=== PATIENT | male | born 1990 | race Caucasian/White ===

== ENCOUNTER 2017-05-02 19:32 | Emergency (ER) | payer MEDICARE, MEDICAID ==
[2017-05-02] MEDS ORDERED: KETOROLAC 30 MG/ML VIAL IVP ONE (19:35)
[2017-05-02] MEDS ORDERED: ONDANSETRON HCL IV 4 MG/2 ML VIAL IVP ONE (19:36)
[2017-05-02] MEDS ORDERED: 0.9 % SODIUM CHLORIDE 1000ML 1,000 ML IV SCH (19:45)
--- NOTE | 2017-05-02 19:45 | Emergency Department Record ---
History of Present Illness - General Chief complaint: Flank Pain Stated complaint: SHARP PAIN IN LT SIDE Time Seen by Provider: 05/02/17 19:34 Source: Patient Mode of Arrival: Ambulatory Limitations: No limitations - History of Present Illness Initial comments: 27 yo male presents to ED for evaluation of RLQ pain and right sided flank pain symptoms that began 2.5 days ago. Patient reports that he went to the ED in [place] at that time, underwent evaluation and CT imaging, told his symptoms were likely due to a small kidney stone. Patient denies fevers, chills, or vomiting, denies change in stools. Patient reports that the symptoms began while moving, denies previous abdominal surgery. MD Complaint: Other Onset/Timin -: Days(s) Location: Left flank Severity: Severe Quality: Aching Consistency: Constant Improves with: None Worsens with: None Reports: Denies other symptoms - Related Data Sexually active: Yes Home Medications Medication Instructions Recorded Confirmed Last Taken Hydrocodone/Acetaminophen [Berne 1 each PO Q6H 05/02/17 05/02/17 Unknown 5-325 Tablet] Tamsulosin HCl [Flomax] 0.4 mg PO DAILY 05/02/17 05/02/17 Unknown Allergies Allergy/AdvReac Type Severity Reaction Status Date / Time No Known Drug Allergies Allergy Verified 05/02/17 19:40 Review of Systems Constitutional: Denies: Chills, Fever, Malaise, Night sweats Eyes: Denies: Eye discharge, Eye pain ENT: Denies: Congestion, Ear pain, Epistaxis Respiratory: Denies: Cough, Dyspnea Cardiovascular: Denies: Chest pain, Dyspnea on exertion Endocrine: Denies: Fatigue, Heat or cold intolerance Gastrointestinal: Reports: Abdominal pain. Denies: Constipation, Nausea, Vomiting Genitourinary: Reports: Retention. Denies: Incontinence Musculoskeletal: Reports: Back pain. Denies: Arthralgia, Gout, Joint swelling Skin: Denies: Bruising, Change in color Neurological: Denies: Abnormal gait, Confusion, Headache, Seizure Psychiatric: Denies: Anxiety Hematological/Lymphatic: Denies: Anemia, Blood Clots Physical Exam - General General Appearance: Alert, Oriented x3, Cooperative, Moderate distress Limitations: No limitations - Head Head exam: Atraumatic, Normocephalic, Normal inspection Head exam detail: negative: Abrasion, Contusion, Llamas's sign, General tenderness, Hematoma, Laceration - Eye Eye exam: Normal appearance. negative: Conjunctival injection, Periorbital swelling, Periorbital tenderness, Scleral icterus - ENT Ear exam: negative: Auricular hematoma, Auricular trauma Nasal Exam: negative: Active bleeding, Discharge, Dried blood, Foreign body Mouth exam: negative: Drooling, Laceration, Muffled voice, Tongue elevation - Neck Neck exam: Normal inspection. negative: Meningismus, Tenderness - Respiratory Respiratory exam: Normal lung sounds bilaterally. negative: Rales, Respiratory distress, Rhonchi, Stridor - Cardiovascular Cardiovascular Exam: Regular rate, Normal rhythm, Normal heart sounds - GI/Abdominal GI/Abdominal exam: Soft, Tenderness, Other (TTP LUQ/LLQ on examination with guarding present). negative: Rebound, Rigid - Rectal Rectal exam: Deferred - exam: Circumcision, Normal inspection. negative: Scrotal swelling, Testicular tenderness - Extremities Extremities exam: Normal inspection. negative: Calf tenderness, Pedal edema, Tenderness - Back Back exam: Reports: CVA tenderness (L). Denies: CVA tenderness (R) - Neurological Neurological exam: Alert, Normal gait, Oriented X3 - Psychiatric Psychiatric exam: Anxious - Skin Skin exam: Normal color. negative: Abrasion Type of lesion: negative: abrasion Course - Reevaluation(s) Reevaluation #1: 05/02/17 20:33 Labs reviewed, WBC 12.8 (down from 19.4 05/01/17 at [facility]), labs are otherwise grossly unremarkable for an acute process. UA: RBC TNTC WBC 0-2 Bacteria: Rare Reevaluation #2: 05/02/17 20:35 CT Abdomen and Pelvis: 2-3 mm calculus left UVJ with mild associated hydronephrosis Patient's previous imaging was reviewed and is overall unchanged from 05/01/17 Patient was updated on all results, pain symptoms are improved. Patient has Berne 10mg, Flomax, and Ibuprofen 600 mg prescribed from his previous visit. Will refer to Dr. Landin for further evaluation as well. Medical Decision Making - Lab Data Result diagrams: 05/02/17 19:45 05/02/17 19:45 Disposition Disposition: Discharge Clinical Impression: Kidney stone on left side Disposition: Home, Self-Care Condition: (2) Stable Instructions: Kidney Stones (ED) Additional Instructions: Return to ED if your symptoms worsen or if you have any concerns. Continue Berne, Flomax, and Ibuprofen as previously prescribed. Follow-up with Dr. Landin in 1-3 days as directed, call for appointment. Referrals: ANTONI LANDIN M.D. [MEDICAL DOCTOR] - [facility] [Provider Group] Forms: Patient Portal Access Time of Disposition: 20:40 Quality - Quality Measures Quality Measures: N/A - Blood Pressure Screening Does Patient Have Any of the Following: No Blood Pressure Classification: Hypertensive Reading Systolic Measurement: 151 Diastolic Measurement: 98 Screening for High Blood Pressure: < First Hypertensive BP, F/U Documented > [ [id number]] First Hypertensive Follow-up Interventions: Referral to alternative/primary care provider.
[2017-05-02 19:58] LABS: BASO % 0.2 % (0-6); EOS % 1.7 % (0-6); GRAN % 68.2 % (47-80); HEMATOCRIT 34.8 % (42.0-52.0); HEMOGLOBIN 11.9 gm/dl (14.0-18.0); LYMPH % 20.9 % (16-45); MEAN CELL VOLUME 90.6 fl (81-97); MEAN CORPUSCULAR HGB CONC 34.2 g/dl (32-36); MEAN PLATELET VOLUME 9.7 fl (7.4-10.4); PLATELET COUNT 276 K/uL (130-400); RED BLOOD COUNT 3.84 M/uL (4.40-5.70); RED CELL DISTRIBUTION WIDTH 11.3 % (11.5-14.5); WHITE BLOOD COUNT W/O DIFF 12.8 K/uL (4.2-12.2)
[2017-05-02 19:59] LABS: MEAN CORPUSCULAR HEMOGLOBIN 30.9 pg (27-33)
[2017-05-02] MEDS ORDERED: HYDROMORPHONE HCL 1 MG/ML SYRINGE IVP ONE (20:17)
[2017-05-02 20:19] LABS: ALB/GLOB RATIO 1.6 (1.1-1.8); ALBUMIN 4.5 g/dL (4.0-5.0); ALKALINE PHOSPHATASE 86 U/L (40-129); ALT/SGPT 13 U/L (<41); AST/SGOT 19 U/L (10.0-50.0); BLOOD UREA NITROGEN 8 mg/dL (6-20); EST GLOMERULAR FILTRATION RATE > 60 mL/min; GLUCOSE,RANDOM 84 mg/dL (74-109); TOTAL PROTEIN 7.3 g/dL (6.6-8.7)
[2017-05-02 20:22] LABS: URINE APPEARANCE SL CLOUDY; URINE BILIRUBIN SMALL (NEGATIVE); URINE BLOOD LARGE (NEGATIVE); URINE COLOR ORANGE; URINE GLUCOSE (UA) NEGATIVE (NEGATIVE); URINE LEUKOCYTE ESTERASE TRACE (NEGATIVE)
[2017-05-02 20:29] LABS: URINE NITRITE POSITIVE (NEGATIVE)
[2017-05-02 20:30] LABS: URINE BACTERIA RARE; URINE MUCUS LIGHT; URINE WBC 0 - 2 (0-2/hpf)
[2017-05-02] MEDS ORDERED: DIAZEPAM 5 MG TABLET PO ONE ×2 (20:48→21:24)
--- NOTE | 2017-05-03 20:49 | CT SCAN REPORT ---
EXAM: CT SCAN ABDOMEN/PELVIS WO CONTRAST HISTORY: SHARP LEFT-SIDED FLANK PAIN FOR THE PAST THREE DAYS. TECHNIQUE: Standard CT imaging of the abdomen and pelvis was performed without contrast. COMPARISON: None. FINDINGS: The lung bases are clear. The liver, gallbladder, biliary tree, pancreas, spleen, and adrenal glands are normal. There is a 3 mm calculus within the distal left ureter just above the ureterovesical junction resulting in mild hydronephrosis. There are a few tiny punctate nonobstructing stones within the left kidney.The right kidney and ureter are normal. The aorta is normal in caliber. There is no retroperitoneal lymphadenopathy. The stomach and epigastrium are normal. The large and small bowel loops including the appendix are normal. There are no focal inflammatory changes. The urinary bladder and prostate gland are normal. There is a tiny fat-containing umbilical hernia. There are no acute osseous abnormalities. 1. IMPRESSION: 1. A 3 MM CALCULUS WITHIN THE DISTAL LEFT URETER RESULTING IN MILD HYDRONEPHROSIS. 2. TINY NONOBSTRUCTING LEFT INTRARENAL CALCULI. 3. TINY FAT-CONTAINING UMBILICAL HERNIA. JOB NUMBER: [id number] [facility]
== END 2017-05-02 21:46 | disposition home or self-care (01) ==
LOC: ER 19:32
DX: N13.2 Hydronephrosis with renal and ureteral calculous obstruction (principal); Z87.442 Personal history of urinary calculi; F17.210 Nicotine dependence, cigarettes, uncomplicated
CPT/HCPCS: 99284 ×2; 96374; 96375; 83690; 85025; 80053; 81001; 74176; J3490; J1885; J2405; J1170; J7030